=== PATIENT | female | born 1970 | race Hispanic/Latino ===

== ENCOUNTER 2017-04-29 15:18 | Emergency (ER) | payer OTHER, SELFPAY ==
[2017-04-29] MEDS ORDERED: Ketorolac Tromethamine 30 MG/ML VIAL ONE (15:42)
--- NOTE | 2017-04-29 15:57 | RAD ---
CHEST 1 VIEW: Date: 04/29/17 HISTORY: Trauma. COMPARISON: None. FINDINGS: Lungs are clear. No pneumothorax or effusion. Cardiac silhouette and mediastinal contours appear with in normal limits. No displaced rib fracture. IMPRESSION: No acute intrathoracic abnormality. POS: H
--- NOTE | 2017-04-29 16:00 | RAD ---
LEFT WRIST 3 VIEWS: Date: 04/29/17 HISTORY: Injury. COMPARISON: None. FINDINGS: Interarticular comminuted fracture distal radius with dorsal displacement and angulation. Foreshorten ing of the wrist is present. The ulnar styloid appears to be intact. IMPRESSION: Intra-articular comminuted fracture distal radius with dorsal displacement and angulation and foresho rtening. POS: [facility]
== END 2017-04-29 16:38 | disposition home or self-care (01) ==
LOC: MADERS 15:18
DX: S52.532A Colles' fracture of left radius, initial encounter for closed fracture (principal); F41.9 Anxiety disorder, unspecified; V89.2XXA Person injured in unspecified motor-vehicle accident, traffic, initial encounter
CPT/HCPCS: 71045; 96374; G0390; J1885